=== PATIENT | male | born 1980 | race Caucasian/White ===

== ENCOUNTER 2017-04-27 17:04 | Emergency (ER) | payer OTHER ==
[~2017-04-27] VITALS: Ht 188 cm; Wt 130.5 kg
[2017-04-27 17:16] VITALS: TEMP 36.5; Ht 188 cm; Wt 130.5 kg
[2017-04-27] MEDS ORDERED: GELATIN SPONGE SZ 100 EXT STA (17:22)
[2017-04-27] MEDS ORDERED: OXYCODONE HCL IR 5 MG TAB (IMMEDIATE RELEASE) PO STA (17:27)
--- NOTE | 2017-04-27 17:27 | EMERGENCY ROOM VISIT NOTE ---
ED Visit Note First contact with patient: 17:18 Chief Complaint: "Cut off tip of right thumb". History of Present Illness: This patient is a 36-year-old male who presents to the Emergency Department via private vehicle for evaluation of their his thumb laceration. 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 They report a large amount of bleeding initially. They deny any numbness or tingling into the distal extremity. They report no decreased range of motion of the affected digit. Patient rates his current discomfort as a 9/10. Patient's Tetanus status is currently up-to-date. Medications: As noted below Allergies: None PMH: No pertinent SHx: Patient lives and is employed locally. ROS: All pertinent positive and negative review of systems are appropriately documented in the History of Present Illness. Physical Exam: VITAL SIGNS - Vital signs and nursing notes were reviewed. He is hypertensive I believe secondary to the amount of pain he is experiencing from the skin avulsion. GENERAL -36-year-old male appearing his stated age who is in no acute distress but does appear to be in pain. Communicates well with provider and answers questions appropriately. SKIN - There is a skin avulsion from the distal right mid finger nail distally. He has avulsed this region just anterior to the bone. The region is approximately 2 cm proximal to distal and is 1cm in width. No deep structures appreciated. There is active bleeding noted. MUSCULOSKELETAL - Laceration as described above. +5/5 strength appreciated of the affected digit. Full range of motion of the affected digit. NEUROLOGIC - Spinothalamic tract was found to be intact with ability to discriminate sharp versus dull sensation. No sensory defects of the dorsal column were appreciated utilizing light touch for evaluation. VASCULAR - Capillary refill was brisk. ED Course: Patient was seen and evaluated by myself. Risks and benefits of performing primary wound closure versus no repair were discussed with the patient who verbalizes understanding. Verbal consent was obtained prior to performing the procedure. There was no skin to close. Gelfoam is the best option. We opted to not anesthetize secondary to the amount of pain this could create. The region was applied a tourniquet, the region was cleansed with normal saline and Betadine. Patient tolerated this well. The region was then dressed with a Gelfoam dressing. I initially ordered a large dressing however it was taking quite some time to be sent from pharmacy. I used multiple of the smaller ones. Initially he bled through this and this was reapplied with good fit. There was no bleeding post 15 minutes. There was no numbness or tingling. He is to leave this on for 48 hours. He is to follow with her improved Workmen's Compensation individual and potentially a hand specialist if need be. He was educated upon management, worrisome symptoms which to return, had questions and provided discharge, and was discharged home in good condition. He was given 10 mg of oxycodone here for his pain. Another individual was driving. His blood pressure did decrease while he was here but I do believe this is likely secondary to the amount of pain that he was experiencing. In the evaluation and treatment of this patient, the following differential diagnoses were considered: Finger Fracture, Finger Dislocation, Finger Sprain, Finger Contusion, Jersey Finger, or Mallet Finger. Current/Historical Medications Scheduled PRN Naproxen (Aleve), 220 MG PO UD PRN for Pain Allergies Coded Allergies: No Known Allergies (Unverified , 04/27/17) Vital Signs Date Time Temp Pulse Resp B/P (MAP) Pulse Ox O2 Delivery O2 Flow Rate FiO2 04/27/17 18:40 88 20 174/94 97 04/27/17 17:16 36.5 96 16 221/141 98 Room Air Medications Administered Medications (Trade) Dose Ordered Sig/Russell Route Start Time Stop Time Status Last Admin Dose Admin Oxycodone HCl (Roxicodone Immediate Rel Tab) 10 mg NOW STAT PO 04/27/17 17:27 04/27/17 17:28 DC 04/27/17 17:39 10 MG Gelatin (Surgifoam Sponge 12-7MM (SMALL)) 1 ea STK-MED ONCE .ROUTE 04/27/17 17:36 04/27/17 17:37 DC 04/27/17 17:39 1 EA Gelatin (Surgifoam Sponge 12-7MM (SMALL)) 3 ea STK-MED ONCE .ROUTE 04/27/17 18:02 04/27/17 18:03 DC 04/27/17 18:05 3 EA Gelatin (Surgifoam Sponge 12-7MM (SMALL)) 3 ea NOW ONCE EXT 04/27/17 18:15 04/27/17 18:16 DC 04/27/17 18:15 2 EA Departure Information Impression Primary Impression: Avulsion of finger tip Dispostion Home / Self-Care Condition GOOD Referrals No Doctor, Assigned (PCP) Emil Hyman MD Forms WORK / SCHOOL INSTRUCTIONS, HOME CARE DOCUMENTATION FORM, IMPORTANT VISIT INFORMATION Patient Instructions My [facility] Additional Instructions You have been treated in the Emergency Department today for your finger tip Avulsion. Leave the GELFOAM and dressing in place for the next 48 hours. Keep the dressing clean and dry until time for removal. To remove the GELFOAM dressing, remove the overlying tape and then soak the wound in warm water until the piece of GELFOAM can be easily removed. Proper wound care is essential for adequate wound healing and infection prevention. You can shower and clean the wound with soap and water. Do not scour over the wound, pat dry with a towel. You can use an antibiotic ointment with a dressing/bandage over the wound for the next 3-4 days. After this time you may leave the wound dry and open to the air. I recommend follow up with the approval Workmen's Compensation individual and potentially the hand specialist, Dr. Hyman. Look for signs of infection of the wound including: increased pain, swelling, foul discharge, streaking, or increased temperature. If any of these are noticed you should return to the Emergency Department for further assessment and treatment. As with any laceration you may have received nerve damage to the surrounding tissues. This damage could be permanent. For pain control, you can use the following [id number] medicines (if >12 yo): - Regular strength (325mg/tab) Tylenol (acetaminophen) 2 tabs every 4-6 hours as needed. Do not exceed 12 tablets in a 24 hour period. Avoid taking more than 3 grams (3000 mg) of Tylenol per day. This includes any other sources of acetaminophen you may take on a regular basis. - Regular strength (200 mg/tab) Advil (ibuprofen) 1-2 tabs every 4-6 hours as needed. Do not exceed a dose of 3200 mg per day. Return to the emergency department if your symptoms worsen despite treatment course outlined above.
[2017-04-27] MEDS ORDERED: NAPR1TAB9 PO (17:33)
[2017-04-27] MEDS ORDERED: GELATIN SPONGE 12-7MM ONE ×2 (17:36→18:02)
[2017-04-27] MEDS ORDERED: GELATIN SPONGE 12-7MM EXT ONE (18:15)
[2017-04-27 18:40] VITALS: BP 174/94; PULSE 88; O2SAT 97
== END 2017-04-27 18:40 | disposition home or self-care (01) ==
LOC: C.EDB 17:06 → C.EDD 18:40
DX: S61.101A Unspecified open wound of right thumb with damage to nail, initial encounter (principal); W31.82XA Contact with other commercial machinery, initial encounter; Y99.0 Civilian activity done for income or pay

== ENCOUNTER 2022-08-04 12:09 | Observation (INO) ==
[2022-08-04] MEDS ORDERED: hydrALAZINE HCL 20 MG/ML VIAL IV STA ×2 (13:11→15:33)
--- NOTE | 2022-08-04 13:16 | Emergency Department Note ---
Impression & Plan HTN (hypertension), Vertigo, Hypertensive urgency ED Provider Note INFORMANT: Patient ED PROVIDER(S): Rj Mcmahan DO CHIEF COMPLAINT: Dizziness PLAN: Disposition: Admission Outpatient prescription management: none Discussion with: I spoke with the hospitalist, who will see the patient for admi ssion/observation and further evaluation and consultation. MEDICAL DECISION MAKING: This is a 42-year-old male who presents to the ED with a chief complaint of dizziness. The patient states that his symptoms started around 930 this morning when he was at work. The patient reports some associated nausea and vomiting. His symptoms are worse with movement. Better if lying down and staying still. Initial blood pressure was noted to be 226/150. When I saw him in the room I rechecked it and it was 212/102. He has no focal neurologic deficits on my exam. He does have some horizontal nystagmus when looking to the right. Vital signs otherwise unremarkable. Patient reports no medical problems and takes no medications. The patient's brain CT did not show acute intracranial process. An EKG shows a normal sinus rhythm. White blood cell count was elevated at 13. Chemistry panel did not show electrolyte abnormality or kidney dysfunction. Troponin was slightly elevated at 20.4. TSH was normal. COVID test was negative. Chest x-ray did not show pulmonary edema. The patient was told the results of the test. He was given some IV hydralazine. His blood pressure did improve slightly with this. He continued having vertigo symptoms. The patient was given a second dose of hydralazine as his blood pressure increased during his ED stay after his initial drop from the initial dose of hydralazine. Because of his elevated troponin as well as his symptoms, he will be seen by the hospitalist for further evaluation and care. Triage Nursing notes reviewed. Vital Signs: reviewed Prior /Outside records reviewed: none Differential diagnosis: BP V, labyrinthitis, hypertensive urgency, CVA, other. Diagnostics, as interpreted by me: 12 lead ECG: Normal sinus rhythm rate of 69. No ST elevation. No PVCs. Normal QTc. Cardiac Monitoring ordered: Sinus rhythm at 60-70 range. Medical decision rules: none Imaging studies: Chest x-ray: No acute disease. No pneumothorax or pneumonia. CT scan of the brain: No intracranial hemorrhage or mass. Procedures: none. Critical care: none. HPI: See MDM above. PAST MEDICAL HISTORY: See Below PAST SURGICAL HISTORY: See Below SOCIAL HISTORY: See Below HOME MEDICATIONS: See Below ALLERGIES: See Below VITALS: See Below PHYSICAL EXAMINATION: See MDM for positive findings otherwise unremarkable. CONSTITUTIONAL/VITAL SIGNS: Reviewed GENERAL:done as appropriate INTEGUMENTARY: done as appropriate HEAD: done as appropriate EYES: done as appropriate RESPIRATORY: done as appropriate CARDIOVASCULAR:done as appropriate GI/ABDOMEN:done as appropriate EXTREMITIES: done as appropriate NEUROLOGICAL: done as appropriate PSYCHIATRIC:done as appropriate MUSCULOSKELETAL:done as appropriate TRIAGE NURSING DOCUMENTATION REVIEWED. Past Med/Surg History Social History Smoking Status: Current every day smoker Feels Safe at Home: Yes Allergies Allergies Allergy/AdvReac Type Severity Reaction Status Date / Time No Known Allergies Allergy Unverified 08/04/22 14:04 Home Meds Home Medications Medication Instructions Recorded Confirmed acetaminophen 500 mg tablet 500 mg PO Q6H PRN Pain 08/04/22 08/04/22 (Tylenol Extra Strength) ibuprofen 200 mg tablet (Advil) 200 mg PO Q6H PRN Pain 08/04/22 08/04/22 Results & Data (ED) Vital Signs Vital Signs - 24 hr 08/04/22 12:25 08/04/22 13:46 08/04/22 14:00 Temperature 36.3 C L Temperature Source Oral Pulse Rate 67 97 H Pulse Rate from SpO2 Sensor Respiratory Rate 18 Respiratory Effort / Characteristics Non-Labored Spontaneous Respiratory Depth Normal Respiratory Pattern Regular Blood Pressure 226/150 H Blood Pressure Mean 175 Blood Pressure Position Sitting Pulse Oximetry 97 99 Oxygen Delivery Method Room Air Room Air Sepsis Recent Fever Within 48 Hours No Sepsis New/Unexplained Change in Mental Status N/A Sepsis Action Taken by Nursing No Action Required 08/04/22 13:59 08/04/22 14:00 08/04/22 14:01 Temperature Temperature Source Pulse Rate 97 H 83 78 Pulse Rate from SpO2 Sensor 96 H 85 82 Respiratory Rate 18 26 H 26 H Respiratory Effort / Characteristics Respiratory Depth Respiratory Pattern Blood Pressure Blood Pressure Mean Blood Pressure Position Pulse Oximetry 98 98 96 Oxygen Delivery Method Sepsis Recent Fever Within 48 Hours Sepsis New/Unexplained Change in Mental Status Sepsis Action Taken by Nursing 08/04/22 14:01 08/04/22 14:06 08/04/22 14:06 Temperature Temperature Source Pulse Rate 74 Pulse Rate from SpO2 Sensor Respiratory Rate 23 Respiratory Effort / Characteristics Respiratory Depth Respiratory Pattern Blood Pressure 231/128 H 191/108 H Blood Pressure Mean 162 135 Blood Pressure Position Pulse Oximetry Oxygen Delivery Method Sepsis Recent Fever Within 48 Hours Sepsis New/Unexplained Change in Mental Status Sepsis Action Taken by Nursing 08/04/22 14:10 08/04/22 14:10 08/04/22 14:21 Temperature Temperature Source Pulse Rate 73 Pulse Rate from SpO2 Sensor 75 Respiratory Rate 21 Respiratory Effort / Characteristics Respiratory Depth Respiratory Pattern Blood Pressure 193/106 H 197/106 H Blood Pressure Mean 135 136 Blood Pressure Position Pulse Oximetry 96 Oxygen Delivery Method Sepsis Recent Fever Within 48 Hours Sepsis New/Unexplained Change in Mental Status Sepsis Action Taken by Nursing 08/04/22 14:21 08/04/22 14:25 08/04/22 14:25 Temperature Temperature Source Pulse Rate 83 77 Pulse Rate from SpO2 Sensor 82 77 Respiratory Rate 32 H 20 Respiratory Effort / Characteristics Respiratory Depth Respiratory Pattern Blood Pressure 221/107 H Blood Pressure Mean 145 Blood Pressure Position Pulse Oximetry 97 98 Oxygen Delivery Method Sepsis Recent Fever Within 48 Hours Sepsis New/Unexplained Change in Mental Status Sepsis Action Taken by Nursing 08/04/22 14:30 08/04/22 14:30 08/04/22 14:35 Temperature Temperature Source Pulse Rate 67 67 Pulse Rate from SpO2 Sensor 68 68 Respiratory Rate 19 21 Respiratory Effort / Characteristics Respiratory Depth Respiratory Pattern Blood Pressure 192/116 H Blood Pressure Mean 141 Blood Pressure Position Pulse Oximetry 97 96 Oxygen Delivery Method Sepsis Recent Fever Within 48 Hours Sepsis New/Unexplained Change in Mental Status Sepsis Action Taken by Nursing 08/04/22 14:35 08/04/22 14:40 08/04/22 14:40 Temperature Temperature Source Pulse Rate 69 Pulse Rate from SpO2 Sensor 69 Respiratory Rate 21 Respiratory Effort / Characteristics Respiratory Depth Respiratory Pattern Blood Pressure 216/103 H 198/118 H Blood Pressure Mean 140 144 Blood Pressure Position Pulse Oximetry 97 Oxygen Delivery Method Sepsis Recent Fever Within 48 Hours Sepsis New/Unexplained Change in Mental Status Sepsis Action Taken by Nursing 08/04/22 14:45 08/04/22 14:45 08/04/22 14:51 Temperature Temperature Source Pulse Rate 69 75 Pulse Rate from SpO2 Sensor 67 76 Respiratory Rate 19 23 Respiratory Effort / Characteristics Respiratory Depth Respiratory Pattern Blood Pressure 198/115 H Blood Pressure Mean 142 Blood Pressure Position Pulse Oximetry 96 98 Oxygen Delivery Method Sepsis Recent Fever Within 48 Hours Sepsis New/Unexplained Change in Mental Status Sepsis Action Taken by Nursing 08/04/22 14:51 08/04/22 14:55 08/04/22 14:55 Temperature Temperature Source Pulse Rate 64 Pulse Rate from SpO2 Sensor 65 Respiratory Rate 16 Respiratory Effort / Characteristics Respiratory Depth Respiratory Pattern Blood Pressure 200/107 H 184/106 H Blood Pressure Mean 138 132 Blood Pressure Position Pulse Oximetry 97 Oxygen Delivery Method Sepsis Recent Fever Within 48 Hours Sepsis New/Unexplained Change in Mental Status Sepsis Action Taken by Nursing 08/04/22 15:00 08/04/22 15:00 08/04/22 15:05 Temperature Temperature Source Pulse Rate 68 70 Pulse Rate from SpO2 Sensor 71 75 Respiratory Rate 18 15 Respiratory Effort / Characteristics Respiratory Depth Respiratory Pattern Blood Pressure 177/124 H Blood Pressure Mean 141 Blood Pressure Position Pulse Oximetry 97 97 Oxygen Delivery Method Sepsis Recent Fever Within 48 Hours Sepsis New/Unexplained Change in Mental Status Sepsis Action Taken by Nursing 08/04/22 15:05 08/04/22 15:11 08/04/22 15:11 Temperature Temperature Source Pulse Rate 85 Pulse Rate from SpO2 Sensor Respiratory Rate 20 Respiratory Effort / Characteristics Respiratory Depth Respiratory Pattern Blood Pressure 174/136 H 223/119 H Blood Pressure Mean 148 153 Blood Pressure Position Pulse Oximetry Oxygen Delivery Method Sepsis Recent Fever Within 48 Hours Sepsis New/Unexplained Change in Mental Status Sepsis Action Taken by Nursing 08/04/22 15:21 08/04/22 15:21 Temperature Temperature Source Pulse Rate 79 Pulse Rate from SpO2 Sensor Respiratory Rate 20 Respiratory Effort / Characteristics Respiratory Depth Respiratory Pattern Blood Pressure 200/110 H Blood Pressure Mean 140 Blood Pressure Position Pulse Oximetry Oxygen Delivery Method Sepsis Recent Fever Within 48 Hours Sepsis New/Unexplained Change in Mental Status Sepsis Action Taken by Nursing Laboratory Data 08/04/22 13:26 08/04/22 13:26 Lab Results 08/04/22 08/04/22 08/04/22 Range/Units 13:26 13:26 13:26 WBC 13.61 H (4.8-10.8) K/ul RBC 4.90 (4.70-6.10) M/uL Hgb 14.7 (14.0-18.0) g/dl Hct 42.0 (42.0-52.0) % MCV 85.7 (80.0-100.0) fL MCH 30.0 (25.0-34.0) pg MCHC 35.0 (32.0-36.0) g/dL RDW Std Deviation 39.4 (36.4-46.3) fL RDW Coeff of Gillian 12.6 (11.5-14.5) % Plt Count 313 (130-400) K/uL MPV 9.4 (9.4-12.4) fL Immature Gran % (Auto) 0.2 % Neut % (Auto) 83.6 % Lymph % (Auto) 9.4 % Norton % (Auto) 6.0 % Eos % (Auto) 0.4 % Baso % (Auto) 0.4 % Neut # (Auto) 11.37 H (1.40-6.50) K/uL Lymph # (Auto) 1.28 (1.2-3.4) K/uL Norton # (Auto) 0.82 H (0.11-0.59) K/uL Eos # (Auto) 0.06 (0-0.50) K/uL Baso # (Auto) 0.05 (0-0.2) K/uL Immature Gran # (Auto) 0.03 (0.01-0.20) K/uL Sodium 139 (136-145) mmol/L Potassium 3.9 (3.5-5.1) mmol/L Chloride 104 (98-107) mmol/L Carbon Dioxide 27 (21-32) mmol/L Anion Gap 8 (3-11) BUN 13 (6-23) mg/dl Creatinine 0.79 (0.6-1.4) mg/dl Est Cr Clr Drug Dosing 170.0 ml/min Est GFR ( Amer) 127.5 ml/min Est GFR (Non-Af Amer) 110.0 ml/min BUN/Creatinine Ratio 16.5 (10-20) Glucose 115 H (70-99(Fasting)) mg/dl Calcium 9.3 (8.5-10.1) mg/dl Total Bilirubin 0.5 (0.2-1.0) mg/dl AST 38 (13-39) U/L ALT 54 H (7-52) U/L Alkaline Phosphatase 74 (34-104) U/L Troponin I High Sens 20.2 H (0-20) pg/ml Total Protein 8.0 (6.0-8.3) gm/dl Albumin 5.0 (3.4-5.0) gm/dl Globulin 3.0 (2.5-4.0) gm/dl Albumin/Globulin Ratio 1.7 (0.9-2) TSH 0.792 (0.300-4.500) uIu/ml SARS-CoV-2, RNA, NAAT (NEGATIVE) 08/04/22 Range/Units 13:26 WBC (4.8-10.8) K/ul RBC (4.70-6.10) M/uL Hgb (14.0-18.0) g/dl Hct (42.0-52.0) % MCV (80.0-100.0) fL MCH (25.0-34.0) pg MCHC (32.0-36.0) g/dL RDW Std Deviation (36.4-46.3) fL RDW Coeff of Gillian (11.5-14.5) % Plt Count (130-400) K/uL MPV (9.4-12.4) fL Immature Gran % (Auto) % Neut % (Auto) % Lymph % (Auto) % Norton % (Auto) % Eos % (Auto) % Baso % (Auto) % Neut # (Auto) (1.40-6.50) K/uL Lymph # (Auto) (1.2-3.4) K/uL Norton # (Auto) (0.11-0.59) K/uL Eos # (Auto) (0-0.50) K/uL Baso # (Auto) (0-0.2) K/uL Immature Gran # (Auto) (0.01-0.20) K/uL Sodium (136-145) mmol/L Potassium (3.5-5.1) mmol/L Chloride (98-107) mmol/L Carbon Dioxide (21-32) mmol/L Anion Gap (3-11) BUN (6-23) mg/dl Creatinine (0.6-1.4) mg/dl Est Cr Clr Drug Dosing ml/min Est GFR ( Amer) ml/min Est GFR (Non-Af Amer) ml/min BUN/Creatinine Ratio (10-20) Glucose (70-99(Fasting)) mg/dl Calcium (8.5-10.1) mg/dl Total Bilirubin (0.2-1.0) mg/dl AST (13-39) U/L ALT (7-52) U/L Alkaline Phosphatase (34-104) U/L Troponin I High Sens (0-20) pg/ml Total Protein (6.0-8.3) gm/dl Albumin (3.4-5.0) gm/dl Globulin (2.5-4.0) gm/dl Albumin/Globulin Ratio (0.9-2) TSH (0.300-4.500) uIu/ml SARS-CoV-2, RNA, NAAT NEGATIVE (NEGATIVE) Administered Medications Discontinued Medications Hydralazine HCl (Hydralazine Hcl 20 Mg/Ml Vial) 10 mg IV NOW STA Stop: 08/04/22 13:12 Last Admin: 08/04/22 13:30 Dose: 10 mg Documented By: HS Hydralazine HCl (Hydralazine Hcl 20 Mg/Ml Vial) 10 mg IV NOW STA Stop: 08/04/22 15:34 Last Admin: 08/04/22 15:40 Dose: 10 mg Documented By: HS Imaging Data Radiologist's Impression: Chest X-Ray 08/04/22 13:11 XR chest 1V portable CLINICAL HISTORY: weakness TECHNIQUE: Single frontal radiograph of the chest was obtained. Comparison: Comparison is made to chest radiograph 12/21/2017 FINDINGS: No lines and tubes are seen. The cardiomediastinal silhouette is normal. The lungs are clear. No evidence of pleural effusion or pneumothorax. IMPRESSION: No acute chest disease. ACT 112: Negative or not required by law. Electronically signed by: Agustin Roach M.D. 08/04/2022 2:[address] 08/04/22 13:11 CT head/brain wo con CLINICAL HISTORY: htn, dizziness/vertigo Technique: Contiguous axial CT images of the head were acquired from the base of the skull to the vertex without intravenous contrast administration. Images were viewed in brain, subdural and bone windows. Automated dose lowering techniques and/or adjustment according to patient size were utilized for this exam. Comparison: CT head 12/21/2017 Findings: The ventricles, basal cisterns, and cerebral sulci are normal. There is no acute intracranial hemorrhage or evidence of acute territorial infarction. Neither mass effect, shift of the midline structures, nor abnormal extra-axial fluid co llections are shown. Imaged portions of the paranasal sinuses and mastoid air cells are clear. The orbits appear normal. There are no acute fractures of the calvaria or scalp swelling. Impression: No acute intracranial hemorrhage, no evidence of acute territorial infarction or other acute intracranial disease process. ACT 112: Negative or not required by law. Electronically signed by: Agustin Roach M.D. 08/04/2022 1:58 PM Discharge Plan Visit Data Chief Complaint: Vertigo Stated Complaint: VERTIGO, THROWING UP ED Provider: Rj Mcmahan Discharge Problem: HTN (hypertension), Vertigo, Hypertensive urgency Patient Disposition: Being Evaluated by Hospitalist Forms Stand Alone Forms: [facility] [employer] Prescriptions Prescriptions: No Action acetaminophen [Tylenol Extra Strength] 500 mg Tablet 500 mg PO Q6H PRN (Reason: Pain) ibuprofen [Advil] 200 mg Tablet 200 mg PO Q6H PRN (Reason: Pain) Referrals Referrals: PCP,NO [Primary Care Provider] -
[2022-08-04 13:43] LABS: Basophils # (auto) 0.05 K/uL (0-0.2); Basophils % (auto) 0.4 %; Eosinophils # (auto) 0.06 K/uL (0-0.50); Eosinophils % (auto) 0.4 %; Hemoglobin 14.7 g/dl (14.0-18.0); Immature Granulocytes # (auto) 0.03 K/uL (0.01-0.20); Immature Granulocytes % (auto) 0.2 %; Lymphocytes # (auto) 1.28 K/uL (1.2-3.4); Lymphocytes % (auto) 9.4 %; Mean Corpuscular Volume 85.7 fL (80.0-100.0); Mean Platelet Volume 9.4 fL (9.4-12.4); Monocytes # (auto) 0.82 K/uL (0.11-0.59); Neutrophils # (auto) 11.37 K/uL (1.40-6.50); Neutrophils % (auto) 83.6 %; Platelet Count 313 K/uL (130-400); RDW Coefficient of Variation 12.6 % (11.5-14.5); RDW Standard Deviation 39.4 fL (36.4-46.3); White Blood Count 13.61 K/ul (4.8-10.8)
--- NOTE | 2022-08-04 13:59 | CT Scan Report ---
CT head/brain wo con CLINICAL HISTORY: htn, dizziness/vertigo Technique: Contiguous axial CT images of the head were acquired from the base of the skull to the chava sunita without intravenous contrast administration. Images were viewed in brain, subdural and bone [facility]. Automated dose lowering techniques and/or adjustment according to patient size were utilized for this exam. Comparison: CT head 12/21/2017 Findings: The ventricles, basal cisterns, and cerebral sulci are normal. There is no acute intracranial hemorrh age or evidence of acute territorial infarction. Neither mass effect, shift of the midline structures , nor abnormal extra-axial fluid collections are shown. Imaged portions of the paranasal sinuses and mastoid air cells are clear. The orbits appear normal. There are no acute fractures of the calvaria or scalp swelling. Impression: No acute intracranial hemorrhage, no evidence of acute territorial infarction or other acute intracra nial disease process. ACT 112: Negative or not required by law. Electronically signed by: Agustin Roach M.D. 08/04/2022 1:58 PM
[2022-08-04 14:05] LABS: Albumin Globulin Ratio 1.7 (0.9-2); BUN Creatinine Ratio 16.5 (10-20); Bilirubin,Total 0.5 mg/dl (0.2-1.0); Calcium 9.3 mg/dl (8.5-10.1); Est GFR (African American) 127.5 ml/min; Potassium 3.9 mmol/L (3.5-5.1)
[2022-08-04 14:11] LABS: Troponin I High Sensitivity 20.2 pg/ml (0-20)
--- NOTE | 2022-08-04 14:32 | XRay Report ---
XR chest 1V portable CLINICAL HISTORY: weakness TECHNIQUE: Single frontal radiograph of the chest was obtained. Comparison: Comparison is made to chest radiograph 12/21/2017 FINDINGS: No lines and tubes are seen. The cardiomediastinal silhouette is normal. The lungs are clear. No evid ence of pleural effusion or pneumothorax. IMPRESSION: No acute chest disease. ACT 112: Negative or not required by law. Electronically signed by: Agustin Roach M.D. 08/04/2022 2:31 PM
--- NOTE | 2022-08-04 15:47 | History & Physical Report ---
Date of Service August 04, 2022 Assessment & Plan (1) Hypertensive emergency without congestive heart failure: (2) Vertigo: (3) Nausea and vomiting: (4) Tobacco abuse: (5) Alcohol abuse: (6) Obesity (BMI 30-39.9): Plan This is a 42-year-old male who has significant past medical history of HTN, HLD, former diagnosis of BIRDIE prior to significant weight loss, tobacco abuse and alcohol abuse who presents to ED secondary to vertigo-like symptoms x1 day. Hypertensive emergency without congestive heart failure Vertigo with associated nausea and vomiting Elevated troponin Admit to PCU Received hydralazine 10 mg x 2 in ED, with initial improvement and then worsening We will reinitiate patient's prior BP medications of lisinopril 20 mg daily and labetalol 100 mg twice daily with first dose now Continue to monitor blood pressure, may need further IV BP medications based on response Discussed with patient regarding risk factors including tobacco use, alcohol use and significant caffeine use Patient reports 100 pound weight loss over the last 2 years which is why he discontinued his medications Prior diagnosis of BIRDIE, but states he does not wear CPAP due to significant weight loss Patient denies chest pain, cycle troponins and obtain echocardiogram Likely vertiginous symptoms to improve with improvement of blood pressure May also be component of labyrinthitis in setting of recent URI symptoms that have since resolved Patient reports history of vertigo in past with URI symptoms; however this is much more profound Obtain MRI of brain rule out CVA prn IV zofran and meclizine Tobacco abuse Encourage cessation Patient declines nicotine patch Alcohol abuse Patient reports drinking approximately 4-8 shots daily and mixed drinks MAYKEL as per protocol, as needed oral Ativan Obesity, BMI 37.6 Patient reports 100 pound weight loss, congratulated him on this DVT ppx: SQ Lovenox Dispo: PCU FULL CODE PCP: Previously saw Erlin, states he does not follow with anyone at this time, will need to re establish with provider Pt was seen and examined in collaboration wht Dr. Casey, please see addendum A total of 60 minutes were spent with greater than 50% of that time face to face with the patient, personally viewing all current laboratories, imaging studies, past medication reconciliation, outpatient chart review, and discussion with specialists to collaborate care for the patient with attending. Please see attending documentation for corrections and/or additions. History of Present Illness Chief Complaint: Vertigo x several hours. Primary Care Provider: NO PCP This is a 42-year-old male who has significant past medical history of HTN, HLD, former diagnosis of BIRDIE prior to significant weight loss, tobacco abuse and alcohol abuse who presents to ED secondary to vertigo-like symptoms x1 day. Today when patient presented to work he developed an acute onset of vertiginous- like symptoms describing as a, "spinning sensation." He also developed significant nausea and vomiting. Due to symptoms being unrelenting he presented to ED. He also reports URI symptoms starting approximately 2 weeks ago which have now finally resolved. He states he typically gets vertigo after having respiratory symptoms. His current symptoms feel similar although much more profound and have not gone away. Typically in the past his symptoms resolved pretty quickly and only associated with movement. He states his vertigo is worse with movement, sitting forward and leaning back as well as quick head movements. It is also associated with significant nausea and vomiting. He is requesting an antiemetic. He also complains of right ear pain. He denies any recent fever, chills, sweats, presyncope, chest pain, shortness breath, cough, abdominal pain, palpitations, change in bowel or urinary habits. 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 He states he is very active cooking most of the day with his occupation. He has lost 100 pounds intentionally over the last 2 years. He previously had been on blood pressure medications but states he stopped them due to his weight loss. He does a significant family history of coronary artery disease as his father suffered MIs in his 40s. He also states his grandfather suffered MIs in his 20s. His paternal grandparents also have history of CVA. He is a 1 pack/day smoker for the past 20 years. He drinks significant amount of caffeine and is unable to quantify as he states he drinks it all day. He also drinks approximately 2 mixed drinks equivalent to 4 shots daily. In ED patient was significantly hypertensive currently blood pressure 200/110. He has received hydralazine 10 mg IV x2. Per [facility] medical records patient previously been on lisinopril/HCTZ 20/12.25 once daily as well as labetalol 100 mg twice daily. He states he tolerated these medications well. Allergies Allergy/AdvReac Type Severity Reaction Status Date / Time No Known Allergies Allergy Unverified 08/04/22 14:04 Home Medications Medication Instructions Recorded Confirmed Type acetaminophen 500 mg tablet 500 mg PO Q6H PRN Pain 08/04/22 08/04/22 History (Tylenol Extra Strength) ibuprofen 200 mg tablet (Advil) 200 mg PO Q6H PRN Pain 08/04/22 08/04/22 History Past Med/Surg History Medical History (Updated 08/04/22 @ 16:37 by Shahida Hi PA-C) Alcohol abuse HLD (hyperlipidemia) HTN (hypertension) Obesity (BMI 30-39.9) BIRDIE (obstructive sleep apnea) Tobacco abuse Surgical History (Updated 08/04/22 @ 16:32 by Shahida Hi PA-C) Hx of arthroscopic knee surgery Family History (Updated 08/04/22 @ 16:33 by Shahida Hi PA-C) Father Coronary heart disease Myocardial infarction 40s Grandfather Stroke Other Heart disease Hypertension Social History Smoking Status: Current every day smoker Tobacco Type: Cigarettes packs per day: 1; Cigarettes Per Day: 20; Do You Dip or Chew Tobacco: No; Hx Alcohol Use: Yes Alcohol type: hard liquor Alcohol Intake Frequency: 4 or More x per/Week Alcohol Intake Frequency Comment: 2-4 shots a day (mixed drinks) Hx Substance Use: Yes Non-Prescribed Medications: Marijuana Preferred Language: Ethiopian Rv Service Technician Required: No Beliefs That Will Affect Care: None Current Living Situation: Family Feels Safe at Home: Yes Safety Concerns: Feels Safe At This Time Assistive Devices: None Review of Systems Review of Systems: All systems reviewed & are unremarkable except as noted in HPI & below Physical Exam Physical Exam: Constitutional: WD/WN, vitals as above,+ nauseated, appears unwell, sitting up in bed, pleasant, conversing easily Head: Normocephalic, Atraumatic Eyes: PERRL, conjunctivae normal, anicteric sclerae ENMT: external ear and nose normal, b/l EAC clear, dry, TM WNL, oropharynx normal dry membranes Neck: trachea midline, no thyromegaly normal visual inspection Respiratory: normal respiratory effort, lungs clear to auscultation, no wheeze, rales, rhonchi. Normal insp/exp effort, no accessory muscle use Cardiovascular: RRR, 1/6 harshad noted rusb, no edema Vessels: no JVD or carotid bruit Chest: normal inspection of chest Abdomen: normal bowel sounds, soft, nontender, no hepatosplenomegaly Musculoskeletal: no cyanosis or clubbing, extremities motor strength 5/5 Skin: no rashes, warm and dry normal turgor Neurologic: PERRL, EOMI, accommodation nl, no face palsy, no dysarthria CN's II-XI intact bilaterally and moves all extremities Psychiatric: A+Ox3, euthymic affect Lymphatic: no cervical or axillary lymphadenopathy : deferred Results & Data Results & Data ([facility]) Vital Signs (Past 12 Hours) Vital Signs Temp Pulse Resp BP Pulse Ox O2 Del Method 08/04/22 15:21 200/110 H 08/04/22 15:21 79 20 08/04/22 15:11 223/119 H 08/04/22 15:11 85 20 08/04/22 15:05 174/136 H 08/04/22 15:05 70 15 97 08/04/22 15:00 68 18 97 08/04/22 15:00 177/124 H 08/04/22 14:55 184/106 H 08/04/22 14:55 64 16 97 08/04/22 14:51 200/107 H 08/04/22 14:51 75 23 98 08/04/22 14:45 198/115 H 08/04/22 14:45 69 19 96 08/04/22 14:40 198/118 H 08/04/22 14:40 69 21 97 08/04/22 14:35 216/103 H 08/04/22 14:35 67 21 96 08/04/22 14:30 67 19 97 08/04/22 14:30 192/116 H 08/04/22 14:25 221/107 H 08/04/22 14:25 77 20 98 08/04/22 14:21 83 32 H 97 08/04/22 14:21 197/106 H 08/04/22 14:10 193/106 H 08/04/22 14:10 73 21 96 08/04/22 14:06 191/108 H 08/04/22 14:06 74 23 08/04/22 14:01 231/128 H 08/04/22 14:01 78 26 H 96 08/04/22 14:00 83 26 H 98 08/04/22 13:59 97 H 18 98 08/04/22 14:00 97 H 08/04/22 13:46 99 Room Air 08/04/22 12:25 36.3 C L 67 18 226/150 H 97 Room Air Diagnostic Findings Chest X-Ray 08/04/22 13:11 XR chest 1V portable CLINICAL HISTORY: weakness TECHNIQUE: Single frontal radiograph of the chest was obtained. Comparison: Comparison is made to chest radiograph 12/21/2017 FINDINGS: No lines and tubes are seen. The cardiomediastinal silhouette is normal. The lungs are clear. No evidence of pleural effusion or pneumothorax. IMPRESSION: No acute chest disease. ACT 112: Negative or not required by law. Electronically signed by: Agustin Roach M.D. 08/04/2022 2:[address] 08/04/22 13:11 CT head/brain wo con CLINICAL HISTORY: htn, dizziness/vertigo Technique: Contiguous axial CT images of the head were acquired from the base of the skull to the vertex without intravenous contrast administration. Images were viewed in brain, subdural and bone windows. Automated dose lowering techniques and/or adjustment according to patient size were utilized for this exam. Comparison: CT head 12/21/2017 Findings: The ventricles, basal cisterns, and cerebral sulci are normal. There is no acute intracranial hemorrhage or evidence of acute territorial infarction. Neither mass effect, shift of the midline structures, nor abnormal extra-axial fluid collections are shown. Imaged portions of the paranasal sinuses and mastoid air cells are clear. The orbits appear normal. There are no acute fractures of the calvaria or scalp swelling. Impression: No acute intracranial hemorrhage, no evidence of acute territorial infarction or other acute intracranial disease process. ACT 112: Negative or not required by law. Electronically signed by: Agustin Roach M.D. 08/04/2022 1:58 PM Medications Administered Medication List Discontinued Medications Hydralazine HCl (Hydralazine Hcl 20 Mg/Ml Vial) 10 mg IV NOW STA Stop: 08/04/22 13:12 Last Admin: 08/04/22 13:30 Dose: 10 mg Documented By: HS Hydralazine HCl (Hydralazine Hcl 20 Mg/Ml Vial) 10 mg IV NOW STA Stop: 08/04/22 15:34 Last Admin: 08/04/22 15:40 Dose: 10 mg Documented By: HS ECG Rate (beats per minute): 69 Rhythm: normal sinus Findings: + RBBB Additional Comments: Incomplete right bundle zac block, no ST or T wave changes, QTc 450 MS, EKG viewed and interpreted by me. COVID-19 Results Results COVID-19 Adm Lab Results: RBC 4.90 M/uL (4.70-6.10) 08/04/22 WBC 13.61 K/ul (4.8-10.8) H 08/04/22 Hgb 14.7 g/dl (14.0-18.0) 08/04/22 Hct 42.0 % (42.0-52.0) 08/04/22 Plt Count 313 K/uL (130-400) 08/04/22 Neutrophils (%) (Auto) 83.6 % 08/04/22 Lymphocytes (%) (Auto) 9.4 % 08/04/22 Monocytes # (Auto) 0.82 K/uL (0.11-0.59) H 08/04/22 Eosinophils # (Auto) 0.06 K/uL (0-0.50) 08/04/22 Immature Granulocyte % (Auto) 0.2 % 08/04/22 Neutrophils # (Auto) 11.37 K/uL (1.40-6.50) H 08/04/22 Lymphocytes # (Auto) 1.28 K/uL (1.2-3.4) 08/04/22 Monocytes # (Auto) 0.82 K/uL (0.11-0.59) H 08/04/22 Eosinophils # (Auto) 0.06 K/uL (0-0.50) 08/04/22 Basophils # (Auto) 0.05 K/uL (0-0.2) 08/04/22 Immature Granulocyte # (Auto) 0.03 K/uL (0.01-0.20) 3 Na 139 mmol/L (136-145) 08/04/22 K 3.9 mmol/L (3.5-5.1) 08/04/22 Cl 104 mmol/L (98-107) 08/04/22 CO2 27 mmol/L (21-32) 08/04/22 Anion Gap 8 (3-11) 08/04/22 BUN 13 mg/dl (6-23) 08/04/22 Creatinine 0.79 mg/dl (0.6-1.4) 08/04/22 BUN/Creatinine Ratio 16.5 (10-20) 08/04/22 Glucose Level 115 mg/dl (70-99(Fasting)) H 08/04/22 Ca 9.3 mg/dl (8.5-10.1) 08/04/22 Total Bilirubin 0.5 mg/dl (0.2-1.0) 08/04/22 AST/SGOT 38 U/L (13-39) 08/04/22 ALT/SGPT 54 U/L (7-52) H 08/04/22 Alkaline Phosphatase 74 U/L (34-104) 08/04/22 Total Protein 8.0 gm/dl (6.0-8.3) 08/04/22 Albumin 5.0 gm/dl (3.4-5.0) 08/04/22 Globulin 3.0 gm/dl (2.5-4.0) 08/04/22 Albumin/Globulin Ratio 1.7 (0.9-2) 08/04/22 SARS-CoV-2, RNA, NAAT NEGATIVE (NEGATIVE) 08/04/22 Chest X-Ray 08/04/22 Code Status & VTE Plan Code Status FULL CODE Supervising Physician Co-Signing Physician Notes Patient seen and examined. History notable for 42-year-old man with history of hypertension who presents with nausea vomiting vertigo started this morning. Patient has been off antihypertensives for over a year. Has not seen PCP in a long time. Reports he was told he had sleep apnea but improved after intentional weight loss of 100 pounds few years ago. Reports he usually gets vertigo when he has URI but they are usually limited and last a few secs-mins. He stated he is recently getting over a cold which is resolving. Started having nausea, vomiting, vertigo, headache this morning around 9am. Stated that this vertigo is different from the one he usually gets with URI. That this is severe and persistent that getting up triggers nausea and vomiting. Denied focal weakness/sensory deficits, slurred speech, dysphagia Remote history of illicit drug use over 14yrs ago Smokes 1ppd. Drinks about 8 shots of alcohol per day. Denied hx of withdrawal Exam notable for obese man in no distress. Did not appreciate any nystagmus with moving head side to side. Power and sensation are intact in all extremities. BP at 182/106 during evaluation. Labs notable for WBC 13, Trop 20.2 Hypertensive emergency Resume labetalol and losartan patient was on some years ago IV hydralazine prn BP >180/100 CT head did not show any acute abnormality Considering patient's description of vertigo, will get MRI brain to rule out CVA Check A1c, lipid panel Counseled on smoking and alcohol. He reports he is working on that. Nicotine patch while inpatient. Mildly elevated trop likely due to demand. Trend Tele monitor Get Echo Other plans as detailed by Shahida Hi PA-C
[2022-08-04] MEDS ORDERED: MECLIZINE HCL 25 MG TAB PO STA (16:14)
[2022-08-04] MEDS ORDERED: lisinopril 20 MG TAB PO STA (16:14)
[2022-08-04] MEDS ORDERED: ONDANSETRON INJ 2 MG/ML 2 ML VIAL IV STA (16:14)
[2022-08-04] MEDS ORDERED: LABETALOL HCL 100 MG TAB PO ONE (16:15)
[2022-08-04] MEDS ORDERED: MAGNESIUM HYDROXIDE SUSP 30 ML UDC PO PRN (17:05)
[2022-08-04] MEDS ORDERED: POLYETHYLENE (MIRALAX) 17 GM PACK PO PRN (17:05)
[2022-08-04] MEDS ORDERED: MECLIZINE HCL 25 MG TAB PO PRN (17:05)
[2022-08-04] MEDS ORDERED: ONDANSETRON INJ 2 MG/ML 2 ML VIAL IV PRN (17:05)
[2022-08-04] MEDS ORDERED: LORazepam 1 MG TAB PO PRN (17:05)
[2022-08-04] MEDS ORDERED: ALUMINUM/MAGNESIUM SUSP 30 ML UDC PO PRN (17:05)
[2022-08-04] MEDS ORDERED: ACETAMINOPHEN 325 MG TAB PO PRN (17:05)
--- NOTE | 2022-08-04 17:09 | Electrocardiogram Report ---
Test Reason : Blood Pressure : / mmHG Vent. Rate : 069 BPM Atrial Rate : 069 BPM P-R Int : 162 ms QRS Dur : 102 ms QT Int : 420 ms P-R-T Axes : 000 -26 110 degrees QTc Int : 450 ms Normal sinus rhythm Incomplete right bundle branch block Voltage criteria for left ventricular hypertrophy Abnormal ECG When compared with ECG of 21-DEC-2017 12:35, Incomplete right bundle branch block is now Present Confirmed by Emil Holland ([id number]) on 08/04/2022 5:08:59 PM Referred By: REFERRED SELF Confirmed By:Angus Holland
[2022-08-04] MEDS ORDERED: hydrALAZINE HCL 20 MG/ML VIAL IV PRN ×2 (18:37→19:35)
[2022-08-04 19:42] LABS: Troponin I High Sensitivity 19.9 pg/ml (0-20)
[2022-08-04] MEDS: NICOTINE 21 MG/24 HR TDSY TD SCH (20:03)
[2022-08-04 20:11] LABS: BUN Creatinine Ratio 18.6 (10-20); Calcium 9.5 mg/dl (8.5-10.1); Creatinine Clr Calc Pharmacy 190.5 ml/min; Est GFR (Non-African American) 115.6 ml/min; Potassium 3.7 mmol/L (3.5-5.1)
[2022-08-04] MEDS ORDERED: PROMETHAZINE HCL 12.5 MG in SODIUM CHLORIDE 0.9% 50 ML IV PRN (21:30)
[2022-08-05] MEDS: lisinopril 20 MG TAB PO SCH (08:42)
[2022-08-05] MEDS: ENOXAPARIN INJ 40 MG/0.4 ML SYR SQ SCH (08:42)
[2022-08-05 08:51] LABS: Hematocrit (blood only) 42.9 % (42.0-52.0); Mean Corpuscular Hemoglobin 30.1 pg (25.0-34.0); Mean Corpuscular Volume 86.1 fL (80.0-100.0); Mean Platelet Volume 9.3 fL (9.4-12.4); Platelet Count 332 K/uL (130-400); RDW Coefficient of Variation 12.9 % (11.5-14.5); RDW Standard Deviation 40.2 fL (36.4-46.3); Red Blood Count 4.98 M/uL (4.70-6.10); White Blood Count 10.98 K/ul (4.8-10.8)
[2022-08-05 08:55] LABS: Albumin Globulin Ratio 1.7 (0.9-2); Albumin Level 4.7 gm/dl (3.4-5.0); BUN Creatinine Ratio 18.6 (10-20); Calcium 9.6 mg/dl (8.5-10.1); Chol HDL Ratio 4.2 (0-5); Creatinine Clr Calc Pharmacy 154.9 ml/min; Est GFR (African American) 123.1 ml/min; Est GFR (Non-African American) 106.2 ml/min; Globulin 2.8 gm/dl (2.5-4.0); Magnesium 2.2 mg/dl (1.7-2.4); Potassium 3.6 mmol/L (3.5-5.1); Total Protein 7.5 gm/dl (6.0-8.3)
[2022-08-05] MEDS ORDERED: LABETALOL HCL 100 MG TAB PO SCH (09:00)
[2022-08-05 09:15] LABS: Estimated Average Glucose 117 mg/dl; Hemoglobin A1C 5.7 % (4.5-5.6)
[2022-08-05] MEDS ORDERED: GADOBUTROL 65ML VIAL IV ONE (10:06)
--- NOTE | 2022-08-05 10:42 | Magnetic Resonance Report ---
MRI OF THE BRAIN WITHOUT AND WITH IV CONTRAST CLINICAL HISTORY: Hypertensive emergency with vertigo. Evaluate for cerebrovascular accident. COMPARISON STUDY: Head CT August 04, 2022. TECHNIQUE: Utilizing a 1.5 Aurora magnet and dedicated coil, multiplanar, multiecho imaging of the br ain was performed pre and postcontrast administration. IV administration of 12.7 mL of Gadavist cont rast was uneventful. FINDINGS: There are no foci of restricted diffusion to suggest acute infarct. No acute intracranial h emorrhage, midline shift or mass effect is present. Brain volume is normal. Ventricular system is nor mal. Basal cisterns are patent. There are no extra-axial collections. Flow-voids for the major intrac ranial vessels are present. There is no intracranial mass or pathologic enhancement. Calvarial signal is normal. A few punctate white matter T2 hyperintense foci suggest minimal small vessel disease or sequela of migraine headaches. Moderate mucosal thickening of the left maxillary sinus is noted with small air-fluid level and secretions. There is no mastoid effusion. Internal auditory canals are unre markable on this nondedicated exam. IMPRESSION: 1. No acute intracranial findings. 2. No intracranial mass or pathologic enhancement. 3. Left maxillary sinusitis. ACT 112: Negative or not required by law. Electronically signed by: Mu Marin M.D. 08/05/2022 10:40 AM
[2022-08-05] MEDS: predniSONE 20 MG TAB PO SCH (11:36)
--- NOTE | 2022-08-05 13:27 | Hospitalist Progress Note ---
Date of Service August 05, 2022 Assessment & Plan (1) Acute labyrinthitis: Plan: Recent URI and severe vertigo. Suspect labyrinth [place]. Tympanic membranes are clear and pearly bilaterally on exam. Rotational nystagmus is present, brain MRI is negative. There are no strokelike symptoms on clinical exam. Vertigo is persistent. He denies any visual deficits headache or other concerning focal deficits. Start prednisone 60 daily for the next 5 days with a taper that is prolonged. Will give meclizine for breakthrough dizziness as needed. This is unfortunately in the context of a significant alcohol problem with concern for possible need for alcohol withdrawal management within the next 24 hours. Baseline alcohol intake is 8 shots of liquor daily. Continue monitoring in PCU. (2) Hypertensive emergency without congestive heart failure: Plan: Patient reports being off labetalol and lisinopril for the last 2 years. Will decrease labetalol by 50% to start more conservatively as he has not been beta- blocked in the recent past. We will continue lisinopril at current dose. We will use parenteral medications as needed/consider the need for withdrawal management with lorazepam overnight. Patient also has a history of BIRDIE. Repeat sleep study is recommended to ensure no continuation of treatment is needed. Currently noncompliant with any CPAP therapy. (3) Vertigo: Plan: Likely a side effect of peripheral labyrinthitis secondary to URI. See plan above. (4) Nausea and vomiting: Plan: Resolved, tolerating p.o. (5) Tobacco abuse: Plan: Smoking cessation strongly advised. NicoDerm continued (6) Alcohol abuse: Plan: alcohol cessation strongly advised. Patient admits to consideration of cutting back. 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 (7) Obesity (BMI 30-39.9): (8) Demand ischemia: Plan: Mild troponin elevation overnight 20.2, 19.9, 22.8. This is likely reflective of demand ischemia in the setting of critical blood pressure elevation. No evidence of ACS at this moment. No further work-up at this time. Dahianax Full Code Dispo- to home in 1-2 days. A total of 60 minutes were spent with greater than 50% of that time face to face with the patient, personally viewing all current laboratories, imaging studies, past medication reconciliation, outpatient chart review, and discussion with patient regarding MRI results at a later visit to the bedside. Pippa Clements DO [facility] Hospitalist Admission and Anticipated Discharge Date Admission Date: August 04, 2022 Subjective 42-year-old man presented with hypertensive crisis and acute vertigo. He reports severe ongoing vertigo overnight and has a rotational nystagmus on physical exam. Brain MRI was reviewed with the patient and was negative for stroke or other acute intracranial abnormalities. Patient states recent URI was severe and ended approximately 1 week ago MRI reports left maxillary sinus inflammation Discussed the results and treatment plan with the patient He did report that he was feeling somewhat sweaty and had some concerns for possible withdrawal that was starting. We did reemphasize the importance of cutting back and ultimately quitting alcohol. Review of Systems Review of Systems: All systems were reviewed and negative except as indicated above. Physical Exam Physical Exam: CONSTITUTIONAL: obese, vitals as above, generally well-appearing EYES: EOMI bilaterally, PERRL, normal conjunctivae, no scleral icterus, +rotational nystagmus with fast component to the right. ENT: external ear and nose normal, oral mucosa is moist NECK: trachea midline RESPIRATORY: clear to auscultation bilaterally, no crackles, rales or wheezes, normal respiratory effort CARDIOVASCULAR: regular rate and rhythm, S1 and 2 heard without murmurs, gallops or rubs, no JVD, no peripheral edema CHEST: inspection of chest was normal GASTROINTESTINAL: soft, nontender, ND, no guarding MUSCULOSKELETAL: strength 5/5 throughout, head is normocephalic and atraumatic, SKIN: warm and dry NEUROLOGIC: CN 2-12 grossly intact, no sensory deficit, normal cognition, normal speech, no tremor PSYCHIATRIC: alert cooperative and oriented to person, place and time. Euthymic mood, makes good eye contact, language grossly intact, recent and remote memory grossly intact. Results & Data Results & Data ([facility]) Vital Signs (Past 12 Hours) Vital Signs Temp Pulse Pulse Resp BP Pulse Ox O2 Del Method 08/05/22 11:32 36.5 C 72 18 196/107 H 95 Room Air 08/05/22 09:31 177/107 H 08/05/22 07:00 74 08/05/22 07:54 96 Room Air 08/05/22 07:47 36.5 C 84 18 211/88 H Room Air 08/05/22 02:51 36.7 C 78 15 168/80 H 95 Room Air Laboratory Results Short CBC 08/04/22 08/05/22 Range/Units 13:26 08:06 WBC 13.61 H 10.98 H (4.8-10.8) K/ul Hgb 14.7 15.0 (14.0-18.0) g/dl Hct 42.0 42.9 (42.0-52.0) % Plt Count 313 332 (130-400) K/uL BMP 08/04/22 08/04/22 08/05/22 13:26 18:48 08:06 Sodium 139 139 140 Potassium 3.9 3.7 3.6 Chloride 104 103 103 Carbon Dioxide 27 26 31 BUN 13 13 16 Creatinine 0.79 0.70 0.86 Glucose 115 H 113 H 113 H Calcium 9.3 9.5 9.6 Liver Function 08/04/22 08/05/22 Range/Units 13:26 08:06 Total Bilirubin 0.5 1.0 D (0.2-1.0) mg/dl AST 38 30 (13-39) U/L ALT 54 H 43 (7-52) U/L Alkaline Phosphatase 74 69 (34-104) U/L Albumin 5.0 4.7 (3.4-5.0) gm/dl Diagnostic Findings Brain MRI 08/04/22 16:32 MRI OF THE BRAIN WITHOUT AND WITH IV CONTRAST CLINICAL HISTORY: Hypertensive emergency with vertigo. Evaluate for cerebrovascular accident. COMPARISON STUDY: Head CT August 04, 2022. TECHNIQUE: Utilizing a 1.5 Aurora magnet and dedicated coil, multiplanar, multiecho imaging of the brain was performed pre and postcontrast administration. IV administration of 12.7 mL of Gadavist contrast was uneventful. FINDINGS: There are no foci of restricted diffusion to suggest acute infarct. No acute intracranial hemorrhage, midline shift or mass effect is present. Brain volume is normal. Ventricular system is normal. Basal cisterns are patent. There are no extra-axial collections. Flow-voids for the major intracranial vessels are present. There is no intracranial mass or pathologic enhancement. Calvarial signal is normal. A few punctate white matter T2 hyperintense foci suggest minimal small vessel disease or sequela of migraine headaches. Moderate mucosal thickening of the left maxillary sinus is noted with small air-fluid level and secretions. There is no mastoid effusion. Internal auditory canals are unremarkable on this nondedicated exam. IMPRESSION: 1. No acute intracranial findings. 2. No intracranial mass or pathologic enhancement. 3. Left maxillary sinusitis. ACT 112: Negative or not required by law. Electronically signed by: Mu Marin M.D. 08/05/2022 10:40 AM Medications Administered Current Inpatient Medications Acetaminophen (Acetaminophen 325 Mg Tab) 650 mg PO Q4H PRN PRN Reason: Pain or Fever Stop: 09/03/22 17:04 Al Hydrox/Mg Hydrox/Simethicone (Aluminum/Magnesium Susp 30 Ml Udc) 15 ml PO Q4H PRN PRN Reason: Dyspepsia Stop: 09/03/22 17:04 Enoxaparin Sodium (Enoxaparin Inj 40 Mg/0.4 Ml Syr) 40 mg SQ QAM [facility] Stop: 09/04/22 08:59 Last Admin: 08/05/22 08:42 Dose: 40 mg Promethazine HCl 12.5 mg/ (Sodium Chloride) 50.5 mls @ 202 mls/hr IV Q6H PRN PRN Reason: Nausea And Vomiting Stop: 09/03/22 21:29 Last Infusion: 08/04/22 22:05 Dose: Infused Labetalol HCl (Labetalol Hcl 100 Mg Tab) 100 mg PO BID [facility] Stop: 09/04/22 08:59 Last Admin: 08/05/22 08:42 Dose: 100 mg Lisinopril (Lisinopril 20 Mg Tab) 20 mg PO QAM [facility] Stop: 09/04/22 08:59 Last Admin: 08/05/22 08:42 Dose: 20 mg Lorazepam (Lorazepam 1 Mg Tab) 1 mg PO ONE PRN; Protocol PRN Reason: EtoH Withdrawal AWSS 6,7,8,9,10 Magnesium Hydroxide (Magnesium Hydroxide Susp 30 Ml Udc) 30 ml PO Q12H PRN PRN Reason: Constipation Stop: 09/03/22 17:04 Meclizine HCl (Meclizine Hcl 25 Mg Tab) 25 mg PO TID PRN PRN Reason: vertigo Stop: 09/03/22 17:04 Last Admin: 08/04/22 17:21 Dose: 25 mg Miscellaneous (Remove Nicoderm Patch) 1 each N/A DAILY@2100 [facility] Stop: 09/04/22 20:59 Nicotine (Nicotine 21 Mg/24 Hr Tdsy) 21 mg TD DAILY@2099 [facility] Stop: 09/03/22 18:44 Last Admin: 08/04/22 20:03 Dose: 21 mg Polyethylene Glycol (Polyethylene (Miralax) 17 Gm Pack) 17 gm PO DAILY PRN PRN Reason: Constipation Stop: 09/03/22 17:04 Prednisone (Prednisone 20 Mg Tab) 60 mg PO DAILY [facility] Stop: 08/10/22 11:14 Last Admin: 08/05/22 11:36 Dose: 60 mg
[2022-08-05] MEDS ORDERED: MECLIZINE 12.5 MG TAB PO PRN (14:13)
[2022-08-05] MEDS ORDERED: LORazepam 2 MG/1 ML VIAL IV STA (14:13)
[2022-08-05] MEDS ORDERED: LORazepam 2 MG/1 ML VIAL IV PRN ×3 (17:11)
[2022-08-05] MEDS ORDERED: Ativan IV Alcohol Withdrawal--Active Protocol IV PRN (17:11)
[2022-08-05] MEDS: LABETALOL HCL 100 MG TAB PO SCH (20:41)
[2022-08-05] MEDS: NICOTINE 21 MG/24 HR TDSY TD SCH (20:44)
[2022-08-06] MEDS: predniSONE 20 MG TAB PO SCH (07:35)
[2022-08-06] MEDS: ENOXAPARIN INJ 40 MG/0.4 ML SYR SQ SCH (07:36)
[2022-08-06] MEDS: LABETALOL HCL 100 MG TAB PO SCH (07:37)
[2022-08-06] MEDS: lisinopril 20 MG TAB PO SCH (07:37)
[2022-08-06] MEDS ORDERED: LABETALOL HCL IV 5 MG/ML 20ML IV STA (07:39)
[2022-08-06] MEDS ORDERED: LABETALOL HCL IV 5 MG/ML 20ML IV ONE (07:45)
[2022-08-06 08:03] LABS: Hematocrit (blood only) 43.3 % (42.0-52.0); Hemoglobin 14.9 g/dl (14.0-18.0); Mean Corpuscular Hemoglobin 30.3 pg (25.0-34.0); Mean Corpuscular Hgb Conc 34.4 g/dL (32.0-36.0); Mean Platelet Volume 9.4 fL (9.4-12.4); Platelet Count 310 K/uL (130-400); RDW Coefficient of Variation 12.8 % (11.5-14.5); RDW Standard Deviation 41.6 fL (36.4-46.3); Red Blood Count 4.92 M/uL (4.70-6.10); White Blood Count 11.67 K/ul (4.8-10.8)
[2022-08-06 08:22] LABS: BUN Creatinine Ratio 20.9 (10-20); Calcium 9.8 mg/dl (8.5-10.1); Creatinine Clr Calc Pharmacy 146.2 ml/min; Est GFR (African American) 119.2 ml/min; Est GFR (Non-African American) 102.9 ml/min; Magnesium 2.3 mg/dl (1.7-2.4); Phosphorus 3.3 mg/dl (2.5-4.9); Potassium 3.6 mmol/L (3.5-5.1)
--- NOTE | 2022-08-06 08:51 | Hospitalist Progress Note ---
Date of Service August 06, 2022 Assessment & Plan (1) Acute labyrinthitis: Plan: Recent URI and severe vertigo. Suspect labyrinthitis. Improved with prednisone. Rotational nystagmus has resolved. He clinically feels better overall. Will cont with taper. Will give meclizine for breakthrough dizziness as needed. This is unfortunately in the context of a significant alcohol problem with concern for possible need for alcohol withdrawal management within the next 24 hours. Baseline alcohol intake is 8 shots of liquor daily. Continue monitoring in PCU. (2) Hypertensive emergency without congestive heart failure: Plan: Patient reports being off labetalol and lisinopril for the last 2 years. Critical BP levels this morning, coinciding with likely alcohol withdrawal. Gave labetalol 20mg IV this am with repeat as above. Giving hydralazine 10mg IV and cont with Ativan PRN withdrawal. Will decrease labetalol by 50% to start more conservatively as he has not been beta-blocked in the recent past. We will continue lisinopril at current dose. We will use parenteral medications as needed/consider the need for withdrawal management with lorazepam overnight. Patient also has a history of BIRDIE. Repeat sleep study is recommended as outpatient to exclude BIRDIE as a formal diagnosis given obesity and HTN. He never actually had a CPAP mask as this was a presumed dx. (3) Vertigo: Plan: Improved overnight. Likely a side effect of peripheral labyrinthitis secondary to URI. See plan above. (4) Nausea and vomiting: Plan: Resolved, tolerating p.o. (5) Tobacco abuse: Plan: Smoking cessation strongly advised. We discussed outpatient alternatives and that vaping is very different. NicoDerm continued (6) Alcohol abuse: Plan: alcohol cessation strongly advised. Patient admits to consideration of cutting back. 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 (7) Obesity (BMI 30-39.9): (8) Demand ischemia: Plan: Mild troponin elevation overnight 20.2, 19.9, 22.8. This is likely reflective of demand ischemia in the setting of critical blood pressure elevation. No evidence of ACS at this moment. No further work-up at this time. Lovenox Full Code Dispo- to home today as long as we can get his BP under control. Pippa Clements DO [facility] Hospitalist Admission and Anticipated Discharge Date Admission Date: August 04, 2022 Subjective 42-year-old man presented with hypertensive crisis and acute vertigo. Taken with size 12 cuff after the labetalol was gi R 188/103 L 178/107 Vertigo has greatly improved, Meclizine is also helpful and he was able to sleep well He reports that he never underwent a sleep study in the past, just had a "presumed BIRDIE" Rotational nystagmus Review of Systems Review of Systems: All systems were reviewed and negative except as indicated above. Physical Exam Physical Exam: CONSTITUTIONAL: obese, vitals as above, generally well-appearing EYES: EOMI bilaterally, PERRL, normal conjunctivae, no scleral icterus, rotational nystagmus with fast component to the right. ENT: external ear and nose normal, oral mucosa is moist NECK: trachea midline RESPIRATORY: clear to auscultation bilaterally, no crackles, rales or wheezes, normal respiratory effort CARDIOVASCULAR: regular rate and rhythm, S1 and 2 heard without murmurs, gallops or rubs, no JVD, no peripheral edema CHEST: inspection of chest was normal GASTROINTESTINAL: soft, nontender, ND, no guarding MUSCULOSKELETAL: strength 5/5 throughout, head is normocephalic and atraumatic, SKIN: warm and dry NEUROLOGIC: CN 2-12 grossly intact, no sensory deficit, normal cognition, normal speech, no tremor PSYCHIATRIC: alert cooperative and oriented to person, place and time. Eu thymic mood, makes good eye contact, language grossly intact, recent and remote memory grossly intact. Results & Data Results & Data ([facility]) Vital Signs (Past 12 Hours) Vital Signs Temp Pulse Pulse Resp BP BP Pulse Ox 08/06/22 08:43 75 08/06/22 08:29 169/99 H 08/06/22 07:00 36.7 C 83 18 193/107 H 97 08/06/22 02:56 36.6 C 62 20 191/106 H 96 08/05/22 23:11 83 08/05/22 22:37 36.7 C 75 18 163/90 H 96 O2 Del Method 08/06/22 08:43 08/06/22 08:29 08/06/22 07:00 Room Air 08/06/22 02:56 Room Air 08/05/22 23:11 08/05/22 22:37 Room Air Laboratory Results Short CBC 02/25/23 Range/Units 07:14 WBC 11.67 H (4.8-10.8) K/ul Hgb 14.9 (14.0-18.0) g/dl Hct 43.3 (42.0-52.0) % Plt Count 310 (130-400) K/uL BMP 08/06/22 07:14 Sodium 138 Potassium 3.6 Chloride 102 Carbon Dioxide 29 BUN 19 Creatinine 0.91 Glucose 87 Calcium 9.8 Medications Administered Current Inpatient Medications Acetaminophen (Acetaminophen 325 Mg Tab) 650 mg PO Q4H PRN PRN Reason: Pain or Fever Stop: 09/03/22 17:04 Al Hydrox/Mg Hydrox/Simethicone (Aluminum/Magnesium Susp 30 Ml Udc) 15 ml PO Q4H PRN PRN Reason: Dyspepsia Stop: 09/03/22 17:04 Enoxaparin Sodium (Enoxaparin Inj 40 Mg/0.4 Ml Syr) [facility] [place] Stop: 09/04/22 08:59 Last Admin: 08/06/22 07:36 Dose: 40 mg Folic Acid (Folic Acid 1 Mg Tab) 1 mg PO QAM [facility] Stop: 09/05/22 08:59 Last Admin: 08/06/22 07:37 Dose: 1 mg Promethazine HCl 12.5 mg/ (Sodium Chloride) 50.5 mls @ 202 mls/hr IV Q6H PRN PRN Reason: Nausea And Vomiting Stop: 09/03/22 21:29 Last Infusion: 08/04/22 22:05 Dose: Infused Labetalol HCl (Labetalol Hcl 100 Mg Tab) 50 mg PO BID [facility] Stop: 09/04/22 20:59 Last Admin: 08/06/22 07:37 Dose: 50 mg Lisinopril (Lisinopril 20 Mg Tab) 20 mg PO QAM [facility] Stop: 09/04/22 08:59 Last Admin: 08/06/22 07:37 Dose: 20 mg Lorazepam (Lorazepam 2 Mg/1 Ml Vial) 2 mg IV UD PRN; Protocol PRN Reason: EtOH Withdrwl score 8,9,10+ Stop: 09/04/22 17:10 Last Admin: 08/05/22 20:37 Dose: 2 mg Lorazepam (Lorazepam 2 Mg/1 Ml Vial) 1 mg IV UD PRN; Protocol PRN Reason: EtOH Withdrawal AWSS Score 6,7 Stop: 09/04/22 17:10 Last Admin: 08/06/22 03:03 Dose: 1 mg Magnesium Hydroxide (Magnesium Hydroxide Susp 30 Ml Udc) 30 ml PO Q12H PRN PRN Reason: Constipation Stop: 09/03/22 17:04 Meclizine HCl (Meclizine Hcl 25 Mg Tab) 25 mg PO TID PRN PRN Reason: vertigo Stop: 09/03/22 17:04 Last Admin: 08/04/22 17:21 Dose: 25 mg Meclizine HCl (Meclizine 12.5 Mg Tab) 12.5 mg PO Q6H PRN PRN Reason: dizziness Stop: 09/04/22 14:12 Last Admin: 08/06/22 07:36 Dose: 12.5 mg Miscellaneous (Remove Nicoderm Patch) 1 each N/A DAILY@2099 [facility] Stop: 09/04/22 20:59 Last Admin: 08/05/22 20:44 Dose: 1 each Nicotine (Nicotine 21 Mg/24 Hr Tdsy) 21 mg TD DAILY@2100 [facility] Stop: 09/03/22 18:44 Last Admin: 08/05/22 20:44 Dose: 21 mg Polyethylene Glycol (Polyethylene (Miralax) 17 Gm Pack) 17 gm PO DAILY PRN PRN Reason: Constipation Stop: 09/03/22 17:04 Prednisone (Prednisone 20 Mg Tab) 60 mg PO DAILY [facility] Stop: 08/10/22 11:14 Last Admin: 08/06/22 07:35 Dose: 60 mg Thiamine HCl (Thiamine Hcl 100 Mg Tab) [facility] [place] Stop: 09/05/22 08:59 Last Admin: 08/06/22 07:37 Dose: 100 mg
[2022-08-06] MEDS ORDERED: hydrALAZINE HCL 20 MG/ML VIAL IV STA (08:52)
[2022-08-06] MEDS ORDERED: hydrALAZINE HCL 20 MG/ML VIAL ONE (08:54)
[2022-08-06] MEDS ORDERED: THIAMINE HCL 100 MG TAB PO SCH (09:00)
[2022-08-06] MEDS ORDERED: FOLIC ACID 1 MG TAB PO SCH (09:00)
--- NOTE | 2022-08-06 09:45 | Electrocardiogram Report ---
Test Reason : Blood Pressure : / mmHG Vent. Rate : 068 BPM Atrial Rate : 068 BPM P-R Int : 158 ms QRS Dur : 098 ms QT Int : 424 ms P-R-T Axes : 060 -45 012 degrees QTc Int : 450 ms Normal sinus rhythm with sinus arrhythmia Left anterior fascicular block Nonspecific ST abnormality Abnormal ECG When compared with ECG of 04-AUG-2022 13:24, Incomplete right bundle branch block is no longer Present Minimal criteria for Septal infarct are no longer Present Confirmed by Indio Scruggs ([id number] on 08/06/2022 9:45:30 AM Referred By: REFERRED SELF Confirmed By:Indio Scruggs
[2022-08-06] MEDS ORDERED: LORazepam 2 MG/1 ML VIAL IV STA (10:00)
--- NOTE | 2022-08-06 14:07 | Discharge Summary ---
Discharge Summary Date of Service August 06, 2022 Admission HPI Per Admitting Provider This is a 42-year-old male who has significant past medical history of HTN, HLD, former diagnosis of BIRDIE prior to significant weight loss, tobacco abuse and alcohol abuse who presents to ED secondary to vertigo-like symptoms x1 day. Today when patient presented to work he developed an acute onset of vertiginous- like symptoms describing as a, "spinning sensation." He also developed significant nausea and vomiting. Due to symptoms being unrelenting he presented to ED. He also reports URI symptoms starting approximately 2 weeks ago which have now finally resolved. He states he typically gets vertigo after having respiratory symptoms. His current symptoms feel similar although much more profound and have not gone away. Typically in the past his symptoms resolved pretty quickly and only associated with movement. He states his vertigo is worse with movement, sitting forward and leaning back as well as quick head movements. It is also associated with significant nausea and vomiting. He is requesting an antiemetic. He also complains of right ear pain. He denies any recent fever, chills, sweats, presyncope, chest pain, shortness breath, cough, abdominal pain, palpitations, change in bowel or urinary habits. 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 He states he is very active cooking most of the day with his occupation. He has lost 100 pounds intentionally over the last 2 years. He previously had been on blood pressure medications but states he stopped them due to his weight loss. He does a significant family history of coronary artery disease as his father suffered MIs in his 40s. He also states his grandfather suffered MIs in his 20s. His paternal grandparents also have history of CVA. He is a 1 pack/day smoker for the past 20 years. He drinks significant amount of caffeine and is unable to quantify as he states he drinks it all day. He also drinks approximately 2 mixed drinks equivalent to 4 shots daily. In ED patient was significantly hypertensive currently blood pressure 200/110. He has received hydralazine 10 mg IV x2. Per [facility] medical records patient previously been on lis inopril/HCTZ 20/12.25 once daily as well as labetalol 100 mg twice daily. He states he tolerated these medications well. Principal Dx & Hospital Course #1 = Principal Diagnosis (1) Acute labyrinthitis: Recent URI and severe vertigo. Suspect labyrinthitis. Improved with prednisone. Rotational nystagmus has resolved. He clinically feels better overall. Will cont with taper. Will give meclizine for breakthrough dizziness as needed. This is unfortunately in the context of a significant alcohol problem with concern for possible need for alcohol withdrawal management within the next 24 hours. Baseline alcohol intake is 8 shots of liquor daily. Continue monitoring in PCU. (2) Hypertensive emergency without congestive heart failure: Patient reports being off labetalol and lisinopril for the last 2 years. Critical BP levels this morning, coinciding with likely alcohol withdrawal. Gave labetalol 20mg IV this am with repeat as above. Giving hydralazine 10mg IV and cont with Ativan PRN withdrawal. Will decrease labetalol by 50% to start more conservatively as he has not been beta-blocked in the recent past. We will continue lisinopril at current dose. We will use parenteral medications as needed/consider the need for withdrawal management with lorazepam overnight. Patient also has a history of BIRDIE. Repeat sleep study is recommended as outpatient to exclude BIRDIE as a formal diagnosis given obesity and HTN. He never actually had a CPAP mask as this was a presumed dx. (3) Vertigo: Improved overnight. Likely a side effect of peripheral labyrinthitis secondary to URI. See plan above. (4) Nausea and vomiting: Resolved, tolerating p.o. (5) Tobacco abuse: Smoking cessation strongly advised. We discussed outpatient alternatives and that vaping is very different. NicoDerm continued (6) Alcohol abuse: alcohol cessation strongly advised. Patient admits to consideration of cutting back. 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 (7) Obesity (BMI 30-39.9): (8) Demand ischemia: Mild troponin elevation overnight 20.2, 19.9, 22.8. This is likely reflective of demand ischemia in the setting of critical blood pressure elevation. No evidence of ACS at this moment. No further work-up at this time. Lovenox Full Code Dispo- to home today as long as we can get his BP under control. Pippa Clements DO [facility] Hospitalist Updated Medication List Medication Instructions Recorded Confirmed Type acetaminophen 500 mg tablet 500 mg PO Q6H PRN Pain 08/04/22 08/04/22 History (Tylenol Extra Strength) ibuprofen 200 mg tablet (Advil) 200 mg PO Q6H PRN Pain 08/04/22 08/04/22 History labetalol 100 mg tablet 100 mg PO BID #60 tabs 08/06/22 Rx lisinopril 20 mg tablet 20 mg PO QAM #30 tabs 08/06/22 Rx meclizine 25 mg tablet 25 mg PO TID PRN dizziness #30 tabs 08/06/22 Rx nicotine 21 mg/24 hr daily 21 mg transdermal DAILY@2100 #14 ea 08/06/22 Rx transdermal patch (Nicoderm CQ) prednisone 10 mg tablet 10 mg PO DIRECTED #30 tabs 08/06/22 Rx thiamine HCl (vitamin B1) 100 mg 100 mg PO QAM #30 tabs 08/06/22 Rx tablet Hospital Stay Data Consultations 08/04/22 15:55 ED Decision to Admit Stat Diagnostic Imagining Performed 08/04/22 13:11 CT head/brain wo con Stat 08/04/22 16:32 MR brain wo/w con Routine Pending Results Patient Have Any Pending Studies at Discharge: No Discharge Instructions Given to Patient (Per Discharging Provider) Please take all medications as instructed on discharge list below. You are being placed on a prolonged course with prednisone with taper (periodic step down in dosing) to treat acute labyrinthitis, which is thought to have been the cause of your vertigo initially. PREDNISONE TAPER INSTRUCTIONS: Start 60mg (6 tabs) at once daily for three days, then Take 40mg (4 tabs) x one day, then Take 30mg (3 tabs) x one day, then Take 20mg (2 tabs) x one day, then Take 10mg (1 tab) x one day, then Take 5mg (o.5 tab) x one day, then stop. Side effects of prednisone may include but not limited to fluid retention, irritability and mood swings, changes in appetite, insomnia and elevation of your blood sugar or blood pressure. You are also being placed on blood pressure medication (labetalol 100mg twice daily and Lisinopril 20mg once daily) which you should continue taking every day. You will likely need adjustments in these medications and should see your outpatient primary care provider (PCP) next week as scheduled to adjust and check labs. Please consider purchasing a home blood pressure cuff and checking blood pressure once daily. You should be resting for at least 30 minutes prior to checking and should be sitting with feet flat on the floor. Please keep a log of your readings and bring to every PCP appointment for review which will help to guide the medication adjustment. Your goal BP is <140/90 on average. As we discussed, please consider a formal sleep study. Untreated obstructive sleep apnea is a cause of hypertension (high blood pressure). This may be ordered by your PCP on followup. It is important to cut down/eliminate drinking alcohol and stop smoking completely (no vaping) as these behaviors are modifiable and terrible for your health. They may be contributing to your issues here in the hospital. It was a pleasure taking care of you! Please call if you have any questions or problems. You can reach a [facility] hospitalist on duty at [facility] 24 hours a day by calling [phone]. Take care of yourself. Pippa Clements, [facility]
== END 2022-08-06 14:53 | disposition home or self-care (01) | DRG 149 ==
LOC: ED 12:09 → SUATTDRO 16:26 → 2S 16:26 → INTOOBSV 16:26 → 2S 16:54